=== PATIENT | male | born 1980 ===

== ENCOUNTER 2020-04-02 10:23 | Emergency (ER) | payer BC, SELFPAY ==
[2020-04-02 11:40] LABS: Bilirubin Negative (Negative); Blood, Urine Negative (Negative); Clarity Clear (Clear); Glucose, Urine (Dipstick) Normal (Negative); Ketone, Urine 10 mg/dL (Negative); Leukocyte Negative Leu/uL (Negative); Nitrite Negative (Negative); Protein, Urine (Dipstick) Negative (Neg-Trace); Specific Gravity, Urine 1.022 (1.002-1.036); Urobilinogen Normal mg/dL (Less than 2); pH, Urine 5.5 (5.0-9.0)
== END 2020-04-02 12:18 | disposition home or self-care (01) ==
LOC: ERS 10:23
DX: R10.32 Left lower quadrant pain (principal); F17.220 Nicotine dependence, chewing tobacco, uncomplicated
CPT/HCPCS: 81003; 99284